=== PATIENT | male | born 1960 | race Native Hawaiian/Other Pacific Islander ===

== ENCOUNTER 2017-09-11 10:52 | Day surgery (SDC) | payer MEDICARE ==
[2017-09-11] MEDS ORDERED: Sodium Chloride 0.9% 0 ML IV ONE (10:55)
[2017-09-11] MEDS ORDERED: EPINEPHrine 1 mg/ml (1:1000) Inj ONE (10:55)
[2017-09-11] MEDS ORDERED: Lidocaine 2% Inj (20ml) ONE (10:55)
[2017-09-11] MEDS ORDERED: Lactated Ringer's 1,000 ML IV ONE (11:50)
[2017-09-11] MEDS ORDERED: Propofol 10 mg/ml Inj (20 ML) ONE (12:04)
[2017-09-11] MEDS ORDERED: Midazolam 2 MG/2 ML VIAL ONE (12:04)
[2017-09-11] MEDS ORDERED: Lactated Ringer's 1,000 ML IV SCH (12:45)
--- NOTE | 2017-09-11 13:13 | RAD ---
PROCEDURE: HISTORY: As above COMPARISON: TECHNIQUE: Total fluoroscopic time utilized during the procedure: 21.4 seconds. Total dose 0.01281 mGy cm squared FINDINGS: Submitted images from the current procedure: 2 Please refer to the physician's notes performing the procedure. IMPRESSION: Less than 1 hour fluoroscopic time utilized during performance of the procedure
--- NOTE | 2017-09-11 13:17 | RAD ---
HISTORY: post-bronchoscopy COMPARISON: None available. TECHNIQUE: Chest, one view. FINDINGS: Examination limited by habitus and hypoinflation. LUNGS: Pulmonary venous congestion versus vascular crowding due to hypoinflation. Please note that chest x-ray has limited sensitivity for the detection of pulmonary masses. PLEURA: No significant pleural effusion identified. No definite pneumothorax . CARDIOVASCULAR: Cardiomegaly. OSSEOUS STRUCTURES: No acute osseous abnormality identified. VISUALIZED UPPER ABDOMEN: Unremarkable. OTHER FINDINGS: None. IMPRESSION: Cardiomegaly. Pulmonary venous congestion versus vascular crowding due to hypoinflation.
[2017-09-11 14:07] VITALS: O2SAT 97
[2017-09-11 15:31] VITALS: BP 130/73; PULSE 70; RESP 18; TEMP 98
--- NOTE | 2017-09-12 07:03 | OP ---
PROCEDURE DATE: 09/11/2017 PROCEDURES: Bronchoscopy and biopsy. INDICATIONS: Hemoptysis. TYPE OF ANESTHESIA: Local IV sedation by anesthesiologist. DESCRIPTION OF PROCEDURE: Scope passed left nostril, vocal cord inspected normal, upper airway normal, trachea normal, mey . Right and left side inspected, no abnormal masses. There is some mucus which clears easily with saline. Bronchial biopsy done from the right upper lobe, washing was done. Tolerated procedure. FINAL DIAGNOSIS: Hemoptysis. Jeremy Tillman MD
== END 2017-09-11 15:35 | disposition home or self-care (01) ==
LOC: C.SDS 10:52
PROVIDERS: ATTEND Internal Medicine Pulmonary Disease
DX: K92.0 Hematemesis (principal)
CPT/HCPCS: 31625; 71045; 87015; 87070; 87101; 87116; 87206; 88104; 88305; J7120